=== PATIENT | male | born 1985 | race Caucasian/White ===

== ENCOUNTER 2022-08-30 05:23 | Day surgery (SDC) | payer OTHER ==
[~2022-08-30] VITALS: Ht 170.2 cm; Wt 83.9 kg
[~2022-08-30 05:23] MED LIST: SYNJARDY 5-5001 EACH PO
[2022-08-30] MEDS ORDERED: PERCOCET 5-3251 EACH PO (08:26)
[2022-08-30] MEDS ORDERED: RECTICARE30 GM TOP (08:29)
== END 2022-08-30 13:15 | disposition home or self-care (01) ==
LOC: CIR.AMB 05:23
PROVIDERS: ATTEND Surgery
DX: K60.3 Anal fistula (principal); E78.5 Hyperlipidemia, unspecified; E11.9 Type 2 diabetes mellitus without complications; Z79.84 Long term (current) use of oral hypoglycemic drugs; Z91.013 Allergy to seafood; Z86.16 Personal history of COVID-19

== ENCOUNTER 2022-12-13 05:15 | Day surgery (SDC) | payer OTHER ==
[~2022-12-13] VITALS: Ht 170.2 cm; Wt 86.2 kg
[~2022-12-13 05:15] MED LIST changes: +PERCOCET 5-3251 EACH PO; +RECTICARE30 GM TOP
[2022-12-13] MEDS ORDERED: TRAM1TAB98 PO (14:15)
== END 2022-12-13 19:10 | disposition home or self-care (01) ==
LOC: CIR.AMB 05:15
PROVIDERS: ATTEND Surgery
DX: K60.3 Anal fistula (principal); R19.4 Change in bowel habit; Z91.013 Allergy to seafood; Z20.822 Contact with and (suspected) exposure to COVID-19; E11.9 Type 2 diabetes mellitus without complications; Z79.84 Long term (current) use of oral hypoglycemic drugs